=== PATIENT | male | born 1960 ===

== ENCOUNTER 2017-10-16 17:25 | Emergency (ER) | payer SELFPAY ==
[2017-10-16 17:33] VITALS: TEMP 98.8
--- NOTE | 2017-10-16 18:30 | ED PDOC ---
HPI: General Adult Time Seen by Provider: 10/16/17 17:58 Chief Complaint (Nursing): Headache Chief Complaint (Provider): Headache History Per: Patient History/Exam Limitations: no limitations Onset/Duration Of Symptoms: Days Current Symptoms Are (Timing): Still Present Additional Complaint(s): 57 year old male with PMHx of diabetes and HTN presents to the ED for an evaluation of headache and sweating at night. As per daughter, patient has occipital headache daily and sweats at night x 3 days. Patient is visiting from [facility]. His sugar level was normal in ED triage. Also reports of numbness in toes and hands. Denies fever, cough, chest pain or abdominal pain. PMD: No Family Provider Past Medical History Reviewed: Historical Data, Nursing Documentation, Vital Signs Vital Signs: Last Vital Signs Temp 98.8 F 10/16/17 17:29 Pulse 74 10/16/17 20:25 Resp 16 10/16/17 20:25 BP 131/78 10/16/17 20:25 Pulse Ox 98 10/18/17 00:17 - Medical History PMH: Diabetes, HTN - Family History Family History: States: Unknown Family Hx - Home Medications Home Medications: Ambulatory Orders Medication Instructions Recorded Cetirizine HCl [Zyrtec] 10 mg PO DAILY #10 tab.rapdis 10/16/17 - Allergies Allergies/Adverse Reactions: Allergies Allergy/AdvReac Type Severity Reaction Status Date / Time No Known Allergies Allergy Verified 10/16/17 17:29 Review of Systems ROS Statement: Except As Marked, All Systems Reviewed And Found Negative Constitutional: Positive for: Sweats. Negative for: Fever, Chills Cardiovascular: Negative for: Chest Pain Gastrointestinal: Negative for: Abdominal Pain Neurological: Positive for: Numbness (hands and toes) Physical Exam - Reviewed Nursing Documentation Reviewed: Yes Vital Signs Reviewed: Yes - Physical Exam Appears: Positive for: Non-toxic, No Acute Distress Head Exam: Positive for: ATRAUMATIC, NORMAL INSPECTION, NORMOCEPHALIC Skin: Positive for: Normal Color, Warm, Dry Eye Exam: Positive for: Normal appearance ENT: Positive for: Normal ENT Inspection Neck: Positive for: Normal Cardiovascular/Chest: Positive for: Regular Rate, Rhythm Respiratory: Positive for: CNT, Normal Breath Sounds Gastrointestinal/Abdominal: Positive for: Normal Exam, Soft Extremity: Positive for: Normal ROM Neurologic/Psych: Positive for: Alert, Oriented (x3). Negative for: Motor/ Sensory Deficits - Laboratory Results Result Diagrams: 10/16/17 18:54 10/16/17 18:54 - ECG O2 Sat by Pulse Oximetry: 98 (RA) Pulse Ox Interpretation: Normal - Progress ED Course And Treament: CXR: NAD LACTATE WNL ON VBG; BLOOD ?HEMOLYSED PER NURSING STAFF. INCONSISTENT WITH CMP WHICH IS WNL. HEAD CT: IMPRESSION: No acute intracranial pathology. Mild sinus disease. FAMILY WOULD LIKE TO BE DISCHARGED. WE WILL NOT REPEAT VBG PATIENT APPEARS WELL/NO FEVER AND BMP WNL. PATIENT TO F/U OUTPATIENT WITH MEDICAL DOCTOR FOR FURTHER EVALUATION. Medical Decision Making Medical Decision Making: Time: 1802 Initial Plan: --Venous Blood Gas Shock Panel --Head w/o Contrast [CT] --CMP --Magnesium --Malaria --CBC w/ Differential --CXR (PA&LAT) --Dengue Fever AB (IGG, IGM) --Blood Culture --Urinalysis --Reevaluation Scribe Attestation: Documented by Briana Felix, acting as a scribe for Alpesh Baker PA-C. Provider Scribe Attestation: All medical record entries made by the Scribe were at my direction and personally dictated by me. I have reviewed the chart and agree that the record accurately reflects my personal performance of the history, physical exam, medical decision making, and the department course for this patient. I have also personally directed, reviewed, and agree with the discharge instructions and disposition. Disposition - Clinical Impression Clinical Impression: Headache - Patient ED Disposition Is Patient to be Admitted: No - Disposition Referrals: [facility] [Outside] Madison Cornell MD [Staff Provider] - Disposition: Routine/Home Disposition Time: 20:25 Condition: IMPROVED Additional Instructions: please call tomorrow [phone] for results after 12:30pm Ask for alpesh Baker Prescriptions: Cetirizine HCl [Zyrtec] 10 mg PO DAILY #10 tab.rapdis Instructions: Headache, Adult (DC) Forms: [facility] (Russian)
--- NOTE | 2017-10-16 18:36 | CT ---
Date of service: 10/16/2017 PROCEDURE: CT HEAD WITHOUT CONTRAST. HISTORY: headache COMPARISON: None available. TECHNIQUE: Axial computed tomography images were obtained through the head/brain without intravenous contrast. Radiation dose: Total exam DLP = 816.2 mGy-cm. This CT exam was performed using one or more of the following dose reduction techniques: Automated exposure control, adjustment of the mA and/or kV according to patient size, and/or use of iterative reconstruction technique. FINDINGS: HEMORRHAGE: No intracranial hemorrhage. BRAIN: No mass effect or edema. No atrophy or chronic microvascular ischemic changes. VENTRICLES: Unremarkable. No hydrocephalus. CALVARIUM: Unremarkable. PARANASAL SINUSES: Scattered ethmoid air cell and trace left maxillary sinus secretions. MASTOID AIR CELLS: Unremarkable as visualized. No inflammatory changes. OTHER FINDINGS: None. IMPRESSION: No acute intracranial pathology. Mild sinus disease.
[2017-10-16 18:58] LABS: BASO # 0.1 K/uL (0.0-0.2); BASO % 1.1 % (0.0-2.0); EOS # 0.3 K/uL (0.0-0.7); EOS % 4.2 % (0.0-4.0); HEMOGLOBIN 14.8 g/dL (12.0-18.0); LYMPH # 2.4 K/uL (1.0-4.3); LYMPH % 39.9 % (20.0-40.0); MEAN CELL VOLUME 87.4 fl (80.0-94.0); MEAN CORPUSCULAR HEMOGLOBIN 30.3 pg (27.0-31.0); MEAN CORPUSCULAR HGB CONC 34.7 g/dL (33.0-37.0); MEAN PLATELET VOLUME 8.3 fl (7.2-11.7); MONO # 0.3 K/uL (0.0-0.8); NEUT # 3.1 K/uL (1.8-7.0); NEUT % 49.8 % (50.0-75.0); PLATELET COUNT 227 K/uL (130-400); RBC 4.88 Mil/uL (4.40-5.90); RED CELL DISTRIBUTION WIDTH 12.4 % (11.5-14.5); WHITE BLOOD COUNT 6.1 K/uL (4.8-10.8)
[2017-10-16 19:01] LABS: SQUAMOUS EPITHIAL < 1 /hpf (0-5); URINE BILIRUBIN NEGATIVE (NEGATIVE); URINE BLOOD NEGATIVE (NEGATIVE); URINE CLARITY CLEAR (Clear); URINE COLOR YELLOW (YELLOW); URINE GLUCOSE (UA) >=500 mg/dL (Normal); URINE LEUKOCYTE ESTERASE NEG Leu/uL (Negative); URINE PROTEIN NEGATIVE (NEGATIVE); URINE UROBILINOGEN 0.2-1.0 mg/dL (0.2-1.0)
[2017-10-16 19:03] LABS: VENOUS BLOOD GAS BASE EXCESS -5.2 mmol/L (0.0-2.0); VENOUS BLOOD GAS PCO2 63 mmHg (40-60); VENOUS BLOOD GAS PO2 50 mm/Hg (30-55); VENOUS BLOOD PH 7.19 (7.32-7.43)
[2017-10-16 19:09] LABS: ALB/GLOB RATIO 1.4 (1.0-2.1); ALBUMIN 4.1 g/dL (3.5-5.0); ALT/SGPT 55 U/L (21-72); AST/SGOT 25 U/L (17-59); BLOOD UREA NITROGEN 9 mg/dl (9-20); CALCIUM 9.3 mg/dL (8.4-10.2); GFR NON-AFRICAN AMERICAN > 60
[2017-10-16 20:26] VITALS: BP 131/78; PULSE 74; RESP 16
[2017-10-16 21:25] LABS: INTRACELLULAR PARASITE NEGATIVE (NEGATIVE)
--- NOTE | 2017-10-17 08:01 | RAD ---
Date of service: 10/16/2017 HISTORY: routine COMPARISON: No prior. TECHNIQUE: Chest PA and lateral FINDINGS: LUNGS: No active pulmonary disease. PLEURA: No significant pleural effusion identified. No pneumothorax apparent. CARDIOVASCULAR: Normal. OSSEOUS STRUCTURES: No significant abnormalities. VISUALIZED UPPER ABDOMEN: Normal. OTHER FINDINGS: None. IMPRESSION: No active disease.
[2017-10-18 00:15] VITALS: O2SAT 98
== END 2017-10-16 20:26 | disposition home or self-care (01) ==
LOC: H.ER 17:25
DX: R51 Headache (principal); E11.9 Type 2 diabetes mellitus without complications; I10 Essential (primary) hypertension